=== PATIENT | female | born 1950 | race Caucasian/White ===

== ENCOUNTER 2017-07-13 19:27 | Emergency (ER) | payer MEDICARE ==
[2017-07-13 19:44] VITALS: O2SAT 95
[2017-07-13] MEDS ORDERED: NORCO 5/325 MG PO ONE ×2 (20:10→21:09)
--- NOTE | 2017-07-13 20:15 | ERPHSYRPT ---
- History of Present Illness Time Seen by Provider: 07/13/17 20:06 Source: patient Exam Limitations: no limitations Patient Subjective Stated Complaint: pt was walking down wooden ramp to feed her animals; slipped backward and tried to catch herself with her right arm and thinks she may have fractured her right wrist. Triage Nursing Assessment: pt ambulated to room per self; a&o x3; skin p, w, & d ; right wrist has obvious deformity; able to move all fingers on hand but states it is painful to do so; denies any other injury at this time. Physician History: ABOUT 1 HOUR AGO AT HOME PT WAS OUTSIDE ON THE PATIO, SLIPPED AND FELL WITH RESULTANT PAIN IN THE RIGHT WRIST; DENIES PRIOR INJURY TO THE RIGHT WRIST; DENIES NUMBNESS OF THE RIGHT HAND DIGITS. Allergies/Adverse Reactions: codeine Allergy (Intermediate, Verified 10/07/15 11:09) Rapid Heart Beat Sulfa (Sulfonamide Antibiotics) Allergy (Mild, Verified 10/07/15 11:09) Rash Home Medications: Citalopram Hydrobromide [Citalopram HBr] 10 mg PO HS 01/30/13 [History] Lisinopril [Zestril] 2.5 mg PO DAILY 01/30/13 [History] Pravastatin Sodium [Pravachol] 40 mg PO HS 01/30/13 [History] Insulin Lispro [Humalog] 35 unit SQ .AFTERNOON 04/03/13 [History] Cholecalciferol (Vitamin D3) [Vitamin D] 0 unit PO DAILY 08/07/15 [History] Famotidine 20 mg [Pepcid 20 MG] 20 mg PO BID 08/07/15 [History] Insulin Glargine,Hum.rec.anlog [Lidia Solostcandi] 40 unit SQ HS 08/07/15 [History ] Prednisone [Hector] 1 mg PO DAILY 08/07/15 [History] Rivaroxaban 10 mg Tablet [Xarelto 10 mg Tablet] 10 mg PO DAILY 08/07/15 [ History] Tofacitinib Citrate [Xeljanz] 5 mg PO BID 08/07/15 [History] Hydrocodone Bit/Acetaminophen [Byron 5-325 Tablet] 1 each PO Q6H PRN PRN [History] Cyclobenzaprine HCl [Flexeril] 10 mg PO HS 07/13/17 [History] Metformin HCl 500 mg [Glucophage 500 MG] 500 mg PO DAILY 07/13/17 [History ] Hx Tetanus, Diphtheria Vaccination/Date Given: No Hx Influenza Vaccination/Date Given: Yes Hx Pneumococcal Vaccination/Date Given: Yes Immunizations Up to Date: Yes - Review of Systems Musculoskeletal: Joint Pain (RIGHT WRIST PAIN) - Past Medical History Pertinent Past Medical History: Yes Neurological History: No Pertinent History ENT History: Cataracts Cardiac History: Hypertension Respiratory History: Other Endocrine Medical History: Adrenal Insufficiency, Diabetes Type II Musculoskeletal History: Rheumatoid Arthritis GI Medical History: No Pertinent History History: No Pertinent History Psycho-Social History: Depression Female Reproductive Disorders: No Pertinent History Other Medical History: steph. feet have had stress fractures - Past Surgical History Past Surgical History: Yes Neuro Surgical History: No Pertinent History Cardiac: Cardiac Catheterization Respiratory: No Pertinent History Gastrointestinal: Cholecystectomy Genitourinary: No Pertinent History Musculoskeletal: Orthopedic Surgery Female Surgical History: Tubal Ligation Other Surgical History: tonsilectomy. Knowrom filter - Social History Smoking Status: Never smoker Exposure to second hand smoke: No Drug Use: none Patient Lives Alone: No - Female History Hx Last Menstrual Period: postmenopausal - Nursing Vital Signs Nursing Vital Signs: Initial Vital Signs Temperature 97.6 F 07/13/17 19:34 Pulse Rate 88 07/13/17 19:34 Respiratory Rate 16 07/13/17 19:34 Blood Pressure 181/85 07/13/17 19:34 O2 Sat by Pulse Oximetry 95 07/13/17 19:34 Pain Scale Pain Intensity 9 - Physical Exam General Appearance: alert Shoulder Exam: non-tender Elbow/Forearm Exam: non-tender Wrist Exam: soft tissue tenderness (RIGHT WRIST HAS MODERATE TENDERNESS WITH DEFORMITY; ALL DIGITS OF THE RIGHT HAND HAVE FULL SENSATION AND CAPILLARY REFILL.) Neuro/Tendon Exam: normal sensation Mental Status Exam: alert, cooperative Skin Exam: warm, dry SpO2 Interpretation: normal SpO2: 95 Oxygen Delivery: Room Air - Course Nursing assessment & vital signs reviewed: Yes Ordered Tests: Active Orders 24 hr Category Date Time Status Sling Application STAT Care 07/13/17 20:59 Active Splint STAT Care 07/13/17 20:59 Active WRIST (MIN 3 VIEWS) Stat Exams 07/13/17 20:09 Taken Medication Summary Discontinued Medications Generic Name Dose Route Start Last Admin Trade Name Zack PRN Reason Stop Dose Admin Hydrocodone Bitart/Acetaminophen 1 tab 07/13/17 20:10 07/13/17 20:18 Byron 5/325 Mg PO 07/13/17 20:11 1 tab STAT ONE Administration Hydrocodone Bitart/Acetaminophen Confirm 07/13/17 20:17 Byron 5/325 Mg Administered 07/13/17 20:18 Dose 1 tab .ROUTE .STK-MED ONE Hydrocodone Bitart/Acetaminophen 2 tab 07/13/17 21:09 Byron 5/325 Mg PO 07/13/17 21:10 SENT HOME W/ PATIENT ONE - Departure Time of Disposition: 21:17 Departure Disposition: Home Clinical Impression: RIGHT WRIST FRACTURE Condition: Stable Critical Care Time: No Referrals: YOLANDA TOURE MD [Primary Care Provider] - Instructions: Wrist Fracture Additional Instructions: FOLLOW UP WITH PRIVATE DOCTOR TOMORROW. ELEVATE RIGHT WRIST ABOVE HEART LEVEL FOR 24 HOURS. WEAR RIGHT ARM SLING FOR COMFORT. KEEP RIGHT WRIST IN SPLINT UNTIL DR BANERJEE(ORTHOPEDIC DOCTOR) IS SEEN TOMORROW AT 8:40 AM AT [facility].
[2017-07-13] MEDS ORDERED: NORCO 5/325 MG ONE ×2 (20:17→21:18)
[2017-07-13 21:51] VITALS: BP 145/81; PULSE 82
--- NOTE | 2017-07-14 08:41 | XRAY ---
Indication: Pain following fall. Comparison: February 01, 2013. 3 views of the right wrist now demonstrates comminuted, impacted, and mildly angulated distal radial acute fracture with intra-articular extension and soft tissue swelling. Also displaced ulnar styloid fracture. Elsewhere osteopenia and mild/moderate carpal degenerative changes.
== END 2017-07-13 21:55 | disposition home or self-care (01) ==
LOC: ED 19:27
PROC: 2W3CX1Z Immobilization of Right Lower Arm using Splint (ICD-10-PCS; principal; 2017-07-13)
DX: S62.101A Fracture of unspecified carpal bone, right wrist, initial encounter for closed fracture (principal); M25.531 Pain in right wrist; I10 Essential (primary) hypertension; E11.9 Type 2 diabetes mellitus without complications; Z79.4 Long term (current) use of insulin; M06.9 Rheumatoid arthritis, unspecified; F32.9 Major depressive disorder, single episode, unspecified; Z79.899 Other long term (current) drug therapy; W18.09XA Striking against other object with subsequent fall, initial encounter; Y93.K9 Activity, other involving animal care; Y92.89 Other specified places as the place of occurrence of the external cause
CPT/HCPCS: 29126; 73110; 99284; A9270-GY